=== PATIENT | female | born 1980 | race Hispanic/Latino ===

== ENCOUNTER 2017-11-20 13:18 | Emergency (ER) | payer MEDICAID, OTHER ==
[2017-11-20 13:23] VITALS: BMI 18.8
[2017-11-20 13:27] VITALS: BP 116/70; PULSE 127; RESP 18; TEMP 98.1; O2SAT 96
--- NOTE | 2017-11-20 14:52 | C.PDOC ---
History Of Present Illness Pt was called b y name in all areas of ED without reply. Pt eloped prior to medical evaluation. Time Seen by Provider: 11/20/17 13:56 Chief Complaint (Nursing): Substance Abuse Past Medical History Vital Signs: Last Vital Signs Temp 98.1 F 11/20/17 13:22 Pulse 127 H 11/20/17 13:22 Resp 18 11/20/17 13:22 BP 116/70 11/20/17 13:22 Pulse Ox 96 11/20/17 13:22 - Medical History PMH: Anxiety, Depression Denies: Diabetes, Hepatitis, HIV, HTN, Chronic Kidney Disease, Seizures, Sexually Transmitted Disease - [facility] Procedures DETOXIFICATION SERVICES FOR SUBSTANCE ABUSE TREATMENT (01/23/16) Family History: States: Unknown Family Hx - Social History Hx Alcohol Use: Yes (vodka) Hx Substance Use: No - Immunization History Hx Tetanus Toxoid Vaccination: Yes Hx Influenza Vaccination: No Hx Pneumococcal Vaccination: No ED Course And Treatment O2 Sat by Pulse Oximetry: 96 Disposition - Disposition Disposition: ELOPEMENT - ER ONLY Disposition Time: 14:20 Condition: STABLE - Clinical Impression Clinical Impression: Drug abuse
== END 2017-11-20 13:56 | disposition left against medical advice (07) ==
LOC: C.ER 13:18
DX: Z02.89 Encounter for other administrative examinations (principal); F19.10 Other psychoactive substance abuse, uncomplicated

== ENCOUNTER 2017-11-20 15:05 | Inpatient (IN) | payer MEDICAID, OTHER ==
[2017-11-20 15:05] VITALS: BMI 18.8
--- NOTE | 2017-11-20 15:44 | C.PDOC ---
History Of Present Illness 37 y/o female with history of Anxiety and Depression presents to ED requesting detox from ETOH. Patient reports last drink was at 4 am this morning and denies Suicidal ideation, homicidal ideation, withdrawal signs or any other physical complaints at this time. Time Seen by Provider: 11/20/17 15:26 Chief Complaint (Nursing): Medical Clearance History Per: Patient History/Exam Limitations: no limitations Onset/Duration Of Symptoms: Days Current Symptoms Are (Timing): Still Present Past Medical History Reviewed: Historical Data, Nursing Documentation, Vital Signs Vital Signs: Last Vital Signs Temp 98.2 F 11/20/17 18:33 Pulse 92 H 11/20/17 18:33 Resp 18 11/20/17 18:33 BP 126/86 11/20/17 18:33 Pulse Ox 99 11/20/17 18:33 - Medical History PMH: Anxiety, Depression Surgical History: No Surg Hx - [facility] Procedures DETOXIFICATION SERVICES FOR SUBSTANCE ABUSE TREATMENT (01/23/16) Family History: States: No Known Family Hx - Social History Hx Alcohol Use: Yes (vodka) Hx Substance Use: No - Immunization History Hx Tetanus Toxoid Vaccination: Yes Hx Influenza Vaccination: No Hx Pneumococcal Vaccination: No Review Of Systems Constitutional: Negative for: Fever, Chills Cardiovascular: Negative for: Chest Pain Respiratory: Negative for: Shortness of Breath Gastrointestinal: Negative for: Nausea, Vomiting Skin: Negative for: Rash Psych: Negative for: Anxiety, Suicidal ideation Physical Exam - Physical Exam Appears: Non-toxic, No Acute Distress Skin: Warm, Dry, No Rash Head: Atraumatic, Normacephalic Eye(s): bilateral: PERRL, EOMI Oral Mucosa: Moist Neck: Normal ROM, Supple Cardiovascular: Rhythm Regular Respiratory: Normal Breath Sounds, No Rales, No Rhonchi, No Wheezing Gastrointestinal/Abdominal: Soft, No Tenderness, No Guarding, No Rebound Extremity: Normal ROM, Capillary Refill (<2 seconds) Neurological/Psych: Oriented x3, Normal Speech Gait: Steady ED Course And Treatment - Laboratory Results Result Diagrams: 11/20/17 15:50 11/20/17 15:50 O2 Sat by Pulse Oximetry: 100 (RA) Pulse Ox Interpretation: Normal Disposition - Disposition Disposition: HOSPITALIZED Disposition Time: 06:00 Condition: STABLE - Clinical Impression Clinical Impression: Alcohol addiction - Scribe Statement The provider has reviewed the documentation as recorded by the Scribe Maricsa Ibarra All medical record entries made by the Lyndon were at my direction and personally dictated by me. I have reviewed the chart and agree that the record accurately reflects my personal performance of the history, physical exam, medical decision making, and the department course for this patient. I have also personally directed, reviewed, and agree with the discharge instructions and disposition. Decision To Admit - Pt Status Changed To: Hospital Disposition Of: Inpatient - Admit Certification Admit to Inpatient:: After my assessment, the patient will require hospitalization for at least two midnights. This is because of the severity of symptoms shown, intensity of services needed, and/or the medical risk in this patient being treated as an outpatient. - InPatient: Physician Admission Certification: I certify that this patient requires 2 or more midnights of care for the following reason:: needs detox - . Bed Request Type: Detox Admitting Physician: Arnav Dixon Patient Diagnosis: Alcohol addiction
[2017-11-20 15:54] LABS: BASO % 1.5 % (0.0-2.0); EOS % 0.3 % (0.0-4.0); HCG,QUALITATIVE URINE NEGATIVE (NEGATIVE); HEMOGLOBIN 14.6 g/dL (11.0-16.0); LYMPH # 1.1 K/uL (1.0-4.3); LYMPH % 33.1 % (20.0-40.0); MEAN CORPUSCULAR HGB CONC 34.8 g/dL (33.0-37.0); MONO # 0.1 K/uL (0.0-0.8); MONO % 4.4 % (0.0-10.0); NEUT % 60.7 % (50.0-75.0); NRBC % 0.1 % (0.0-2.0); RBC 4.42 Mil/uL (3.80-5.20); WHITE BLOOD COUNT 3.2 K/uL (4.8-10.8)
[2017-11-20 15:56] LABS: MEAN CELL VOLUME 94.7 fL (81.0-99.0)
[2017-11-20 16:03] LABS: SQUAMOUS EPITHIAL 4 /hpf (0-5); URINE BILIRUBIN NEGATIVE (NEGATIVE); URINE BLOOD NEGATIVE (NEGATIVE); URINE CLARITY Hazy (Clear); URINE COLOR Yellow (YELLOW); URINE GLUCOSE (UA) NORMAL (Normal); URINE LEUKOCYTE ESTERASE NEG Leu/uL (Negative); URINE PROTEIN 2+ mg/dL (NEGATIVE); URINE UROBILINOGEN NORMAL mg/dL (0.2-1.0)
[2017-11-20 16:05] LABS: ALB/GLOB RATIO 1.2 (1.0-2.1); ALBUMIN 4.9 g/dL (3.5-5.0); ALT/SGPT 59 U/L (9-52); AST/SGOT 185 U/L (14-36); BLOOD UREA NITROGEN 4 mg/dL (7-17); CALCIUM 9.5 mg/dl (8.6-10.4); GFR AFRICAN-AMERICAN > 60; GFR NON-AFRICAN AMERICAN > 60
[2017-11-20 16:20] LABS: BARBITURATES, UR NEGATIVE (NEGATIVE); BENZODIAZEPINES, UR NEGATIVE (NEGATIVE); OPIATES, UR NEGATIVE (NEGATIVE); PHENCYCLIDINE, UR NEGATIVE (NEGATIVE)
--- NOTE | 2017-11-20 18:06 | PCM.BM ---
Treatment Plan Problems - Problems identified on initial assessmt potiential for autonomic instability related to alcohol abuse Date Initiated: 11/20/17 Time Initiated: 18:05 Assessment reference: NA Status: Active - Milieu Protocol Maintain good personal hygiene: daily Encourage regular showers, daily Remind patient to perform daily oral care, daily Assist patient to perform ADL's Maintain personal safety: every shift Educate patient to report safety concerns to staff, every shift Monitor environment for contraband/sharps Medication safety: Monitor for expected outcome, potential side effects: every shift, Assess barriers to learning: every shift, Assess readiness for medication education: every shift
[2017-11-21] MEDS: Multiple Vitamins Tab PO SCH (09:35)
[2017-11-21] MEDS ORDERED: Vitamins A & D Oint UD Foilpak TOP PRN (12:43)
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
[2017-11-22] MEDS: Multiple Vitamins Tab PO SCH (10:24)
--- NOTE | 2017-11-22 18:32 | PCM.PYCHPN ---
Psychiatric Progress Note - Psychiatric Progress Note Patient seen today, length of contact: 15 minutes Patient Chief Complaint: I'm feeling little better Problems Identified/Issues Discussed: Patient seen, chart reviewed, case discussed with the staff Issues related to illness and treatment were discussed with the patient. Reported compliant with treatment with no adverse affects. Reported feeling little better with treatment. Still has withdrawal symptoms. Mood reported as anxious. Affect appropriate. Offered Zoloft. Risk and benefits of Zoloft were discussed with the patient. Patient understood and agreed. Patient was awake alert oriented 3. Denied any delusions, auditory or visual hallucinations, suicidal ideations or homicidal ideation at the time of evaluation. Medical Problems: None reported Diagnostic Results: Reviewed DSM 5 Symptoms Update: Some improvement with treatment Medication Change: Yes (Started Zoloft 50 mg daily) Medical Record Reviewed: Yes Mental Status Examination - Cognitive Function Orientation: Person, Place, Situation, Time Memory: Intact Attention: WNL Concentration: WNL Association: [facility] Fund of Knowledge: [facility] Decription of patient's judgement and insights: Fair - Mood Mood: Anxious (Less than before) - Affect Affect: Other (Appropriate) - Speech Speech: Appropriate - Formal Thought Process Formal Thought Process: No Impairment Psychotic Thoughts and Behaviors: None - Suicidal Ideation Suicidal Ideation: No - Homicidal Ideation Homicidal Ideation: No Goal/Treatment Plan - Goal/Treatment Plan Need for Continued Stay: Remain at risks for inpatient hospitalization, Discharge may exacerbated symptoms, Severe functional impairment Progress Toward Problem(s) and Goals/Treatment Plan: Patient education Supportive therapy CBT for relapse prevention [place] for abstinence Continue treatment as before Estimated Date of D/C: 11/26/17 - Smoking Cessation Smoking Cessation Initiated: Yes
[2017-11-23] MEDS: Multiple Vitamins Tab PO SCH (10:29)
--- NOTE | 2017-11-23 22:23 | PCM.PYCHPN ---
Psychiatric Progress Note - Psychiatric Progress Note Patient seen today, length of contact: 15 minutes Patient Chief Complaint: I'm feeling better Problems Identified/Issues Discussed: Patient seen, chart reviewed, case discussed with the staff Issues related to illness and treatment were discussed with the patient. Reported compliant with treatment with no adverse affects. Reported feeling better with treatment. Mood reported as okay. Affect appropriate. Patient was awake alert oriented 3. Denied any delusions, auditory or visual hallucinations, suicidal ideations or homicidal ideation at the time of evaluation. Medical Problems: None reported Diagnostic Results: Reviewed DSM 5 Symptoms Update: Improvement with treatment Medication Change: No Medical Record Reviewed: Yes Mental Status Examination - Cognitive Function Orientation: Person, Place, Situation, Time Memory: Intact Attention: WNL Concentration: WNL Association: [facility] Fund of Knowledge: [facility] Decription of patient's judgement and insights: Fair - Mood Mood: Anxious (Much less than before) - Affect Affect: Other (Appropriate) - Speech Speech: Appropriate - Formal Thought Process Formal Thought Process: No Impairment Psychotic Thoughts and Behaviors: None - Suicidal Ideation Suicidal Ideation: No - Homicidal Ideation Homicidal Ideation: No Goal/Treatment Plan - Goal/Treatment Plan Need for Continued Stay: Remain at risks for inpatient hospitalization, Discharge may exacerbated symptoms, Severe functional impairment Progress Toward Problem(s) and Goals/Treatment Plan: Patient education Supportive therapy CBT for relapse prevention [place] for abstinence Continue treatment as before Estimated Date of D/C: 11/26/17 - Smoking Cessation Smoking Cessation Initiated: Yes
[2017-11-24] MEDS: Multiple Vitamins Tab PO SCH (10:26)
--- NOTE | 2017-11-24 18:29 | PCM.PYCHPN ---
Psychiatric Progress Note - Psychiatric Progress Note Patient seen today, length of contact: 15 minutes Patient Chief Complaint: I'm feeling better. Last night I slept very good Problems Identified/Issues Discussed: Patient seen, chart reviewed, case discussed with the staff Issues related to illness and treatment were discussed with the patient. Reported compliant with treatment with no adverse affects. Reported feeling better with treatment. Patient reported that she slept very good last night and now feeling more better. Mood reported as good. Affect appropriate. Patient was awake alert oriented 3. Denied any delusions, auditory or visual hallucinations, suicidal ideations or homicidal ideation at the time of evaluation. Medical Problems: None reported Diagnostic Results: Reviewed DSM 5 Symptoms Update: Improving with treatment Medication Change: No Medical Record Reviewed: Yes Mental Status Examination - Cognitive Function Orientation: Person, Place, Situation, Time Memory: Intact Attention: WNL Concentration: WNL Association: [facility] Fund of Knowledge: [facility] Decription of patient's judgement and insights: Fair - Mood Mood: Neutral - Affect Affect: Other (Appropriate) - Speech Speech: Appropriate - Formal Thought Process Formal Thought Process: No Impairment Psychotic Thoughts and Behaviors: None - Suicidal Ideation Suicidal Ideation: No - Homicidal Ideation Homicidal Ideation: No Goal/Treatment Plan - Goal/Treatment Plan Need for Continued Stay: Remain at risks for inpatient hospitalization, Discharge may exacerbated symptoms, Severe functional impairment Progress Toward Problem(s) and Goals/Treatment Plan: Patient education Supportive therapy CBT for relapse prevention [place] for abstinence Continue treatment as before Estimated Date of D/C: 11/26/17 - Smoking Cessation Smoking Cessation Initiated: Yes
[2017-11-24 21:15] VITALS: RESP 18
[2017-11-25 01:01] VITALS: TEMP 97.4
[2017-11-25] MEDS: Multiple Vitamins Tab PO SCH (09:29)
[2017-11-25 10:02] VITALS: BP 103/73; PULSE 88; O2SAT 100
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
== END 2017-11-25 12:09 | disposition home or self-care (01) | DRG 751 ==
LOC: C.ER 15:05 → C.7D 17:43
PROVIDERS: ADMIT Psychiatry & Neurology Psychiatry; ATTEND Psychiatry & Neurology Psychiatry
PROC: HZ2ZZZZ Detoxification Services for Substance Abuse Treatment (ICD-10-PCS; principal; 2017-11-20)
PROC: HZ42ZZZ Group Counseling for Substance Abuse Treatment, Cognitive-Behavioral (ICD-10-PCS; 2017-11-20)
PROC: HZ52ZZZ Individual Psychotherapy for Substance Abuse Treatment, Cognitive-Behavioral (ICD-10-PCS; 2017-11-20)
PROC: HZ59ZZZ Individual Psychotherapy for Substance Abuse Treatment, Supportive (ICD-10-PCS; 2017-11-20)
DX: F10.230 Alcohol dependence with withdrawal, uncomplicated (principal); F17.210 Nicotine dependence, cigarettes, uncomplicated; F32.9 Major depressive disorder, single episode, unspecified; Y90.8 Blood alcohol level of 240 mg/100 ml or more; F41.9 Anxiety disorder, unspecified; G47.00 Insomnia, unspecified